=== PATIENT | female | born 1990 | race Hispanic/Latino ===

== ENCOUNTER 2023-03-06 03:00 | Emergency (ER) | payer OTHER, SELFPAY ==
[2023-03-06 03:03] VITALS: BP 110/70; PULSE 68; RESP 16; TEMP 36.9; O2SAT 100
--- NOTE | 2023-03-06 03:09 | ED.NAVMDI ---
HPI - Nausea/Vomiting/Diarrhea General Chief complaint: Nausea/Vomiting/Diarrhea Stated complaint: nausea/vomiting Time Seen by Provider: 03/06/23 03:08 Source: patient and family () Mode of arrival: ambulatory Limitations: no limitations History of Present Illness HPI Narrative: This is a 32-year-old female who presents with complaint of nausea, vomiting, and diarrhea. This started approximately 1700 last night. She presents to the emergency department now because it is occurring every 15 minutes. She did recently have exposure to the flu she was around her cousins. Her last menstrual period was a few weeks ago. She is in the process of fertility testing has not undergone any hormonal replacement or IVF. Patient states symptoms started after she felt the need to have a bowel movement. She believes she has had more than 20 episodes of each but denies any blood. She does occasionally use marijuana edibles. Related Data Allergies Allergy/AdvReac Type Severity Reaction Status Date / Time No Known Allergies Allergy Mild Verified 03/06/23 03:06 [facility] Social History Social History (Updated 03/06/23 @ 03:24 by Georgina Burciaga MD) Substance use type: marijuana Other substance usage details: edibles occasionally Living arrangements: with family Additional living arrangements comments: Exam Narrative: GENERAL: well-nourished, and in mild acute distress initiailly, with head in trash bucket HEAD: Normocephalic, atraumatic. EYES: Non injected, non icteric ENT: Nares clear, no rhinorrhea or epistaxis. Moist mucous membranes NECK: Supple. CHEST: Talking in complete sentences. No respiratory distress. HEART: Regular rate and rhythm. ABDOMEN: Soft, nondistended. No tenderness to palpation. EXTREMITIES: Normal range of motion. No edema. SKIN: Warm, dry, no rash. NEURO: No focal deficits. Alert and oriented x3. PSYCH: Normal mood and affect. Course Vital Signs Vital signs: Vital Signs Temperature 98.4 F 03/06/23 03:03 Pulse Rate 68 03/06/23 03:03 Respiratory Rate 16 03/06/23 03:03 Blood Pressure 110/70 03/06/23 03:03 Pulse Oximetry 100 03/06/23 03:03 Oxygen Delivery Room Air 03/06/23 03:03 Temperature 98.4 F 03/06/23 03:03 Pulse Rate 95 03/06/23 05:52 Respiratory Rate 18 03/06/23 05:52 Blood Pressure 114/61 03/06/23 05:52 Pulse Oximetry 98 03/06/23 05:52 Oxygen Delivery Room Air 03/06/23 03:03 MDM - Nausea/Vomiting/Diarrhea MDM Narrative Medical decision making narrative: Patient presents with vomiting and diarrhea that started yesterday evening. VS WNL and reassuring physical exam. Flu exposure recently. IV fluids and ondansetron ordered initially. Patient has a leukocytosis, likely stress response. Also anion gap though I suspect a degree of starvation ketosis. Negative test. Patient is re-evaluated. She is feeling much better and vomiting/diarrhea has not recurred. Stable for discharge with Rx for Zofran. Advised simple bland diet and that she may experience transient lactose intolerance. Verifies understandign. Differential Diagnosis Differential diagnosis: Likely food poisoning, gastroenteritis, dehydration and other (, acute viral syndrome) Lab Data Attestation: I reviewed the patient's lab results. Lab results narrative: Acute leukocytosis, likely stress response. 03/06/23 03:21 03/06/23 03:22 Labs: Lab Results 03/06/23 03/06/23 03/06/23 Range/Units 03:21 03:22 05:11 WBC 18.4 H (4.5-10.0) K/mm3 RBC 4.65 (4.2-5.4) M/mm3 Hgb 14.0 (12.0-15.0) g/dL Hct 41.9 (37.0-47.0) % MCV 90.1 (80-100) fl MCH 30.1 (26-34) pg MCHC 33.4 (32-36) g/dl RDW 12.4 (11.5-14.5) % Plt Count 359 (150-375) k/mm3 MPV 9.9 (7.4-10.4) fl Immature Gran % (Auto) 0.4 (0-0.5) % Neut % (Auto) 90.3 H (45.5-73.1) % Lymph % (Auto) 4.3 L (18.3-44.2)
[2023-03-06 03:27] LABS: Basophils Absolute Auto 0.1 K/mm3 (0.0-0.1); Basophils Percent Auto 0.3 % (0.2-1.2); Eosinophils Percent Auto 0.2 % (0-4.4); Hematocrit 41.9 % (37.0-47.0); Immature Granulocyte Absolute 0.08 K/mm3 (0.00-0.031); Immature Granulocyte Percent A 0.4 % (0-0.5); Lymphocytes Absolute Auto 0.78 K/mm3 (0.9-3.2); Lymphocytes Percent Auto 4.3 % (18.3-44.2); Mean Corpuscular HGB Conc 33.4 g/dl (32-36); Mean Corpuscular Hemoglobin 30.1 pg (26-34); Mean Corpuscular Volume 90.1 fl (80-100); Mean Platelet Volume 9.9 fl (7.4-10.4); Monocytes Absolute Auto 0.8 K/mm3 (0.1-0.6); Monocytes Percent Auto 4.5 % (2.6-8.5); Neutrophils Absolute Auto 16.6 K/mm3 (1.3-6.7); Neutrophils Percent Auto 90.3 % (45.5-73.1); Platelet Count Result 359 k/mm3 (150-375); Red Blood Count 4.65 M/mm3 (4.2-5.4); Red Cell Distribution Width 12.4 % (11.5-14.5); White Blood Count 18.4 K/mm3 (4.5-10.0)
[2023-03-06] MEDS: SODIUM CHLORIDE 0.9% IV 1,000 ML 999 ML IV CONT (03:35)
[2023-03-06 03:36] LABS: Alanine Aminotransferase 25 U/L (6-35); Alkaline Phosphatase 101 U/L (38-126); Anion Gap 18 mmol/L (8-16); Aspartate Amino Transferase 36 U/L (14-36); Bilirubin,Total 1.1 mg/dL (0.2-1.3); Blood Urea Nitrogen 18 mg/dL (7-17); Calcium 9.9 mg/dL (8.4-10.2); Carbon Dioxide 16 mmol/L (22-30); Chloride 105 mmol/L (98-107); Estimated CRCL calculation 79 ml/min; Estimated Glomerular Filt Rate > 60; Glucose 129 mg/dL (65-110); Lipase 106 U/L (23-300); Potassium 3.7 mmol/L (3.4-5.0); Sodium 139 mmol/L (137-145)
[2023-03-06] MEDS: ONDANSETRON INJ 4 MG/2 ML VIAL IV PUSH (03:37)
[2023-03-06 04:01] LABS: Influenza A QL RT-PCR Negative (Negative); Influenza B QL RT-PCR Negative (Negative); RSV RNA, RT-PCR Negative (Negative); SARS-CoV-2 RNA PCR Negative (Negative)
[2023-03-06 05:23] LABS: Appearance Urine Clear (Clear); Bacteria Urine None Seen /hpf; Bilirubin Urine Negative (Negative); Blood Urine Negative (Negative); Color Urine Yellow (Yellow); Glucose Urine UA Negative (Negative); Ketones Urine 4+ mg/dL (Negative); Leukocyte Esterase Ur Negative LEU/UL (Negative); Nitrate Urine Negative (Negative); Non Pathogenic Casts 0-2; Protein Urine Trace mg/dL (Negative); Specific Grav Ur 1.021 (1.001-1.035); Squamous Epithelial Cell Urine None seen /hpf (Few); Urobilinogen Urine 0.2 mg/dL (<2.0); WBC Urine 0-5 /hpf; pH Urine >=9.0 (5.0-9.0)
[2023-03-06 05:28] LABS: Add Urine Microscopic? YES
[2023-03-06 05:52] VITALS: BP 114/61; PULSE 95; RESP 18; O2SAT 98
== END 2023-03-06 06:01 | disposition home or self-care (01) ==
PROVIDERS: Emergency Provider Student in an Organized Health Care Education/Training Program
DX: K52.9 Noninfective gastroenteritis and colitis, unspecified (principal); Z20.822 Contact with and (suspected) exposure to COVID-19
CPT/HCPCS: 36415; 80053; 81001; 81025; 83690; 83735; 85025; 87637; 96361; 96374; 99284; J2405; J7030